=== PATIENT | male | born 1965 | race African-American/Black ===

== ENCOUNTER 2023-11-27 23:08 | Inpatient (IN) | payer OTHER, SELFPAY ==
--- NOTE | 2023-11-27 | ECG_ITS ---
Measurements Intervals [place] Rate: 74 P: 52 MN: 160 QRS: 27 QRSD: 87 T: 51 QT: 373 QTc: 415 Interpretive Statements SINUS RHYTHM NORMAL ELECTROCARDIOGRAM NO PREVIOUS ECG AVAILABLE FOR COMPARISON Electronically Signed On 11-28-2023 7:44:26 CDT by Samir Barahona M.D.
--- NOTE | ~2023-11-27 | CT_ITS ---
EXAMINATION: CT brain wo con DATE: 11/27/2023 23:23 INDICATION: Slurred speech. TECHNIQUE: Computed tomography (CT) of the head was performed without intravenous contrast. The mA wa s adjusted according to patient size. Iterative reconstruction technique was employed. The dose-lengt h product was 605.33 mGy-cm. COMPARISON: None FINDINGS: There are old lacunar infarcts in the bilateral basal ganglia and left thalamus. There are old infarcts in the deep frontal lobe white matter bilaterally. There are scattered areas of low atte nuation in the cerebral white matter. There is no intracranial hemorrhage, acute infarction, or abnor mal intracranial mass lesion. The ventricles are normal in size. There is mucosal thickening in the p aranasal sinuses. The mastoid air cells are normal. There is cerumen in the external auditory canals. IMPRESSION: 1. Old infarcts involving the bilateral basal ganglia, left thalamus, and bilateral frontal lobes. 2. Mild nonspecific cerebral white matter disease, which likely represents chronic small vessel ische doni disease. Reviewed, dictated and finalized at location A. IMPRESSION: 1. Old infarcts involving the bilateral basal ganglia, left thalamus, and bilat eral frontal lobes. 2. Mild nonspecific cerebral white matter disease, which likely represents facing end trimmer mario alberto small vessel ischemic disease.
--- NOTE | ~2023-11-27 | MR_ITS ---
EXAMINATION: MR brain/brain stem wo/w con DATE: 11/28/2023 11:46 INDICATION: Slurred speech. TECHNIQUE: Magnetic resonance imaging (MRI) of the brain and brainstem was performed without and with 13 mL MultiHance intravenous contrast. COMPARISON: Head CT 11/28/2023 FINDINGS: There is an acute infarct in posterior limb left internal capsule. There are old infarcts i nvolving the bilateral basal ganglia and left thalamus. There are scattered areas of nonspecific incr eased T2-weighted signal intensity in the cerebral white matter and telma. There is no intracranial he morrhage or abnormal mass lesion. The ventricles are normal in size. There is mucosal thickening in t he paranasal sinuses. The orbits are normal. The mastoid air cells are normal. IMPRESSION: 1. Acute infarct involving posterior limb left internal capsule. 2. Old infarcts involving the bilateral basal ganglia and left thalamus. 3. Moderate nonspecific cerebral white matter disease and pontine disease, which likely represents ch ronic small vessel ischemic disease. Reviewed, dictated and finalized at location A. IMPRESSION: 1. Acute infarct involving posterior limb left internal capsule. 2. Old infarcts involving the bilateral basal ganglia and left thalamus. 3. Moderate nonspecific cerebral white matter disease and pontine disease, whic h likely represents chronic small vessel ischemic disease.
--- NOTE | ~2023-11-27 | XR_ITS ---
EXAMINATION: XR chest 1V DATE: 11/27/2023 23:31 INDICATION: Slurred speech. Dysphasia. TECHNIQUE: A single frontal view of the chest was obtained. COMPARISON: None. FINDINGS: There is no pneumonia, pleural effusion, or pneumothorax. The heart size is normal. IMPRESSION: 1. No acute cardiopulmonary disease. Reviewed, dictated and finalized at location A.
--- NOTE | ~2023-11-27 | XR_ITS ---
EXAMINATION: XR barium swallow modified DATE: 12/01/2023 13:40 INDICATION: Dysphagia. Cerebral vascular accident. TECHNIQUE: The patient was given barium-containing material of multiple consistencies to swallow by t ashvin speech pathologist while I performed fluoroscopy. Fluoroscopy exposure time was 1.7 minutes. The n umber of fluoroscopy images saved to the PACS was 1. Dose-area product was 1.2 Gy-cm^2. FINDINGS: There is reduced laryngeal elevation and reduced laryngeal adduction. There is laryngeal penetration and aspiration of thin liquids via straw. IMPRESSION: 1. Aspiration of thin liquids via straw. 2. Please refer to the speech therapy report for recommendations. Reviewed, dictated and finalized at location A.
--- NOTE | ~2023-11-27 | XR_ITS ---
EXAMINATION: XR barium swallow modified DATE: 11/29/2023 09:50 INDICATION: Dysphagia. TECHNIQUE: The patient was given barium-containing material of multiple consistencies to swallow by t ashvin speech pathologist while I performed fluoroscopy. Dose-area product was 1.031 Gy-cm2. 2.3 minutes fluoroscopy time FINDINGS: Oral stage: Within functional limits Pharyngeal Phase: Reduced laryngeal elevation, reduced laryngeal abduction and reduced tongue base r etraction Vallecular and piriform sinus residue Laryngeal penetration and aspiration Cervical/Esophageal Stage: Within functional limits IMPRESSION: Modified esophagram findings as above. Please refer to the speech therapy report for spec [facility] recommendations. Reviewed, dictated and finalized at Location A. Reviewed, dictated and finalized at location A. IMPRESSION: Modified esophagram findings as above. Please refer to the speech t herapy report for specific recommendations.
--- NOTE | ~2023-11-27 | CT_ITS ---
EXAMINATION: CTA brain carotid DATE: 11/28/2023 01:15 INDICATION: Slurred speech. TECHNIQUE: Computed tomographic angiography (CTA) of the head was performed with 100 mL Omnipaque-350 intravenous contrast. CTA of the neck was performed with intravenous contrast. Automated exposure co ntrol and iterative reconstruction technique were employed. The dose-length product was 1168.87 mGy-c m. Maximum intensity projection and volume rendered 3D-reconstructions were created by the technPATHSENSORSi st on a separate workstation. COMPARISON: Head CT 11/27/2023 FINDINGS: HEAD CTA: There are old infarcts in the bilateral basal ganglia and left thalamus. There are old infa rcts in the deep frontal lobe white matter bilaterally. There are scattered areas of low attenuation in the cerebral white matter. There is no intracranial hemorrhage, acute infarction, or abnormal intr acranial mass lesion. The ventricles are normal in size. There is mild mucosal thickening in the para nasal sinuses. The mastoid air cells are normal. There is cerumen in the external auditory canals. Th e orbits are normal. The vertebral arteries are codominant. There is no significant stenosis of basil ar artery or the posterior cerebral arteries. The posterior communicating arteries are normal. There is no significant stenosis of the intracranial internal carotid arteries or anterior or middle cerebr al arteries. Anterior communicating artery is normal. There is no aneurysm. There is a carious lesion of a left maxillary molar. NECK CTA: There is mild emphysema. There are no pathologically enlarged lymph nodes. There is no sign ificant stenosis of the vertebral arteries. There is mild plaque in the proximal internal carotid art eries. There is 0% stenosis of the proximal right internal carotid artery relative to normal distal a rtery lumen diameter (NASCET criteria). There is 0% stenosis of the proximal left internal carotid ar reyna relative to normal distal artery lumen diameter. There is moderate cervical spondylosis. IMPRESSION: 1. Old infarcts involving the bilateral basal ganglia, left thalamus, and bilateral frontal lobes. 2. Mild nonspecific cerebral white matter disease, which likely represents chronic small vessel ische doni disease. 3. No aneurysm or significant intracranial calcinosis. 4. 0% stenosis of the proximal internal carotid arteries relative to normal distal artery lumen diame ters (NASCET criteria). 5. Mild emphysema. Reviewed, dictated and finalized at location A. IMPRESSION: 1. Old infarcts involving the bilateral basal ganglia, left thalamus, and bilat eral frontal lobes. 2. Mild nonspecific cerebral white matter disease, which likely represents regional guide mari oalberto small vessel ischemic disease. 3. No aneurysm or significant intracranial calcinosis. 4. 0% stenosis of the proximal internal carotid arteries relative to normal dis alyssia artery lumen diameters (NASCET criteria). 5. Mild emphysema.
[2023-11-27 23:05] VITALS: BP 142/72; PULSE 76; RESP 16; TEMP 36.9; O2SAT 98
[2023-11-27 23:15] VITALS: BP 142/62; PULSE 68; RESP 16
[2023-11-27 23:16] VITALS: BP 133/69; PULSE 78; RESP 13; O2SAT 98
[2023-11-27 23:17] LABS: Glucose Point of Care 286 mg/dl (65-105)
[2023-11-27 23:20] LABS: Basophils Percent Auto 0.4 % (0.2-1.2); Eosinophils Absolute Auto 0.2 K/mm3 (0-0.3); Eosinophils Percent Auto 1.5 % (0-4.4); Hematocrit 42.9 % (42.0-52.0); Hemoglobin 14.8 g/dL (14.0-18.0); Immature Granulocyte Absolute 0.04 K/mm3 (0.00-0.031); Immature Granulocyte Percent A 0.4 % (0-0.5); Lymphocytes Absolute Auto 3.13 K/mm3 (0.9-3.2); Lymphocytes Percent Auto 30.4 % (18.3-44.2); Mean Corpuscular HGB Conc 34.5 g/dl (32-36); Mean Corpuscular Hemoglobin 33.8 pg (26-34); Mean Corpuscular Volume 97.9 fl (80-100); Mean Platelet Volume 11.6 fl (7.4-10.4); Monocytes Absolute Auto 0.8 K/mm3 (0.1-0.6); Monocytes Percent Auto 7.7 % (2.6-8.5); Neutrophils Absolute Auto 6.1 K/mm3 (1.3-6.7); Neutrophils Percent Auto 59.6 % (45.5-73.1); Platelet Count Result 235 k/mm3 (150-375); Red Blood Count 4.38 M/mm3 (4.6-6.20); Red Cell Distribution Width 12.1 % (11.5-14.5); White Blood Count 10.3 K/mm3 (4.5-10.0)
[2023-11-27 23:31] LABS: Partial Thromboplastin Time 29.2 Seconds (22.3-36.8); Prothrombin Time 13.6 Seconds (11.1-14.7)
[2023-11-27 23:33] LABS: Alanine Aminotransferase 18 U/L (6-50); Albumin Level 4.2 g/dL (3.5-5.1); Alkaline Phosphatase 74 U/L (38-126); Anion Gap 4 mmol/L (4-12); Aspartate Amino Transferase 20 U/L (17-59); Bilirubin,Total 0.4 mg/dL (0.2-1.3); Blood Urea Nitrogen 14 mg/dL (9-20); Calcium 9.3 mg/dL (8.4-10.2); Carbon Dioxide 30 mmol/L (22-30); Chloride 104 mmol/L (98-107); Estimated CRCL calculation 105 ml/min; Estimated Glomerular Filt Rate > 60; Glucose 286 mg/dL (65-110); Potassium 3.8 mmol/L (3.4-5.0); Sodium 138 mmol/L (137-145)
[2023-11-27 23:45] LABS: Troponin I < 0.012 ng/mL (0.000-0.034)
[2023-11-28] VITALS (39 sets, daily range): BP systolic 100–141; BP diastolic 46–82; PULSE 57–92; RESP 12–19; TEMP 36.3–36.4; O2SAT 97–100; BMI 23.9
--- NOTE | 2023-11-28 | ECHO_ITS ---
Patient Info Name: Morgan Mckeon Age: 58 years : 1965 Gender: Male Ht: 66 in Wt: 148 lbs BSA: 1.78 m2 HR: 64 bpm BP: 102 / 52 mmHg Heart Rhythm: Sinus Rhythm Technical Quality: Good Exam Date: 11/28/2023 9:42 AM Exam Location: Echo Lab Patient Status: Inpatient Admit Date: 11/28/2023 Staff Ordering Physician: Randy Farooq MD [employer] Plant Operator: Cristobal Bass RDCS Attending Provider: Randy Farooq MD Exam Type: CA echo doppler w bubble study Study Info Indications - CVA Complete two-dimensional, color flow and Doppler transthoracic echocardiogram is performed with agitated saline. Summary 1. Left ventricular chamber dimension is normal. 2. Left ventricular systolic function is normal, estimated at 60-65%. 3. The left ventricular diastolic function is grade I diastolic dysfunction. 4. E/e' 10 is mildly elevated. 5. There is trace mitral valve regurgitation. 6. No pulmonary hypertension, estimated pulmonary arterial systolic pressure is 11 mmHg. Left Ventricle E/e' 10 is mildly elevated. Left ventricular chamber dimension is normal. Left ventricular systolic function is normal, estimated at 60-65%. The left ventricular diastolic function is grade I diastolic dysfunction. Right Ventricle Right ventricular systolic function is normal and with normal TAPSE 2.2 cm. Right ventricular chamber dimension is normal. Left Atria Left atrial chamber dimension is normal. Right Atria Right atrial chamber dimension is normal. Atrial Septum Agitated saline injection with and without valsalva maneuver opacified right side cardiac chambers without shunt to left side cardiac chambers. Intact interatrial septum visualized by 2D and agitated saline imaging. Aortic Valve The aortic valve is trileaflet. There is no aortic valve stenosis. There is no aortic valve regurgitation. Pulmonic Valve There is no pulmonic regurgitation. Mitral Valve There is no mitral valve stenosis. There is trace mitral valve regurgitation. Tricuspid Valve There is no tricuspid valve regurgitation. No pulmonary hypertension, estimated pulmonary arterial systolic pressure is 11 mmHg. Pericardium/Pleural There is no pericardial effusion. Inferior Vena Cava Normal inferior vena cava with >50% collapse upon inspiration consistent with normal right atrial pressure, 5 mmHg. Aorta The aortic root size at the sinus of Valsalva is normal. Left Ventricular Outflow Tract Name Value Normal LVOT 2D LVOT Diameter 2.1 cm LVOT Doppler LVOT Peak Gradient 4 mmHg LVOT Mean Gradient 2 mmHg LVOT VTI 21 cm LVOT VTI/AV VTI Ratio 0.8 LVOT Stroke Volume 74 ml LVOT CO 5.0 l/min LVOT CI 2.8 l/min/m2 Pulmonic Valve Name Value Normal RVOT Doppler RVOT Peak Gradient
--- NOTE | 2023-11-28 00:59 | ED.GENADULT ---
HPI - General Adult General Chief complaint: Neuro Symptoms/Deficit Stated complaint: intermittent trouble finding words Time Seen by Provider: 11/27/23 23:37 History of Present Illness HPI narrative: Patient is a 58-year-old male who presents to the emergency department this evening complaining of difficulty with his speech and some dysphagia. Patient states that yesterday he went to bed feeling fine and woke up this morning with garbled speech. Patient admits with history of hypertension and diabetes but when asked if he takes any medications for both of these he states no. 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 He is currently denying any focal weakness, numbness and no tingling. Patient denies any headache, dizziness, blurry visions, chest pain or shortness of breath. He recent illness or any fevers or chills. He also denies any abdominal pain or nausea and vomiting. There are no other modifying, alleviating, or precipitating factors at this time. Related Data Allergies Allergy/AdvReac Type Severity Reaction Status Date / Time No Known Allergies Allergy Verified 11/28/23 06:25 Review of Systems Review of Systems: All systems are reviewed and are negative unless stated otherwise in the HPI. Exam Narrative: General: Alert, awake, afebrile, in no acute distress. HEENT: PERRL, no rhinorrhea, no post nasal drip, oropharynx clear. Neck: Trachea midline, no JVD, no lymphadenopathy. Cardiovascular: Regular rate and rhythm, no murmurs, rubs or gallops, no peripheral edema. Respiratory: Clear to auscultation bilaterally, no tachypnea, no wheezing, no rhonchi, no rubs, no respiratory distress. Abdomen: Soft, nontender, nondistended, no rebound, no guarding, no peritoneal signs. Musculoskeletal: No joint swelling or deformity, normal muscle tone. Skin: No rashes or petechia, no signs of infection. Psychiatric: Alert and oriented, normal behavior and judgment for situation. Neurological: Alert and oriented to person, place, and time. Follows all commands. 5/5 motor strength in the bilateral upper and lower extremity, sensation intact and equal in the bilateral upper and lower extremity, cranial nerves 2-12 grossly intact, no appreciable facial droop, speech is slurred and difficult to understand with expressive aphasia, NIH score of 2 secondary to dysarthria and expressive aphasia. Course Vital Signs Vital signs: Vital Signs Temperature 98.4 F 11/27/23 23:05 Pulse Rate 76 11/27/23 23:05 Respiratory Rate 16 11/27/23 23:05 Blood Pressure 142/72 H 11/27/23 23:05 Pulse Oximetry 98 11/27/23 23:05 Oxygen Delivery Room Air 11/27/23 23:05 Temperature 98.4 F 11/27/23 23:05 Pulse Rate 64 11/28/23 05:17 Respiratory Rate 15 11/28/23 05:17 Blood Pressure 102/52 L 11/28/23 05:17 Pulse Oximetry 99 11/28/23 05:17 Oxygen Delivery Room Air 11/27/23 23:05 Medical Decision Making MDM Narrative Medical decision making narrative: The patient was evaluated by myself in the emergency department. History is obtained from patient who is an independent historian and physical exam was performed. External medical records were reviewed at this time. IV was established and pertinent tests were ordered. EKG was obtained which revealed sinus rhythm rate of 74. No ST changes, T wave inversions or evidence of acute ischemia. EKG was independently interpreted by me and is currently pending official cardiology read. Laboratory results obtained revealing no acute process Imaging studies obtained included CT brain without IV contrast which was independently interpreted by me revealing no acute intracranial process, old infarcts, which is pending final radiology interpretation. CT angiogram head and neck was obtained at this time revealing a negative CT angiogram of the head and neck, dural venous sinuses are patent. At this time, patient was informed of these find
--- NOTE | 2023-11-28 06:15 | PM.IMHP ---
H&P: HPI History of Present Illness Date/Time: 11/28/23 06:15 Chief Complaint: Slowed speech Narrative: Patient is a 58-year-old male who presents to the emergency department this evening complaining of difficulty with his speech and some dysphagia.? Patient states that yesterday he went to bed feeling fine and woke up this morning with garbled speech.? Patient admits with history of hypertension and diabetes but when asked if he takes any medications for both of these he states no.? 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 He is currently denying any focal weakness, numbness and no tingling.? Patient denies any headache, dizziness, blurry visions, chest pain or shortness of breath. Patient during the ER stay also developed expressive aphasia he is enalapril to give us any detail answers. Facial CT is negative patient being admitted for further neuro workup with Neurology consult and a brain MRI Review of Systems Review of Systems: No fevers chills nausea vomiting. No double vision no blurry vision. No difficulty hearing or sinus complaints. No chest pain shortness of breath fever palpitation dizziness ankle swelling. No coughing wheezing chills. No nausea constipation diarrhea abdominal pain reflux. No urgency frequency of urination. No hematuria. No skin rash eczema. No anxiety depression difficulty sleeping. No bleeding gums enlarged glands. No muscle ache back pain joint stiffness. No loss of strength numbness headache tremor or loss of memory. Meds Home Medications and Allergies Allergies Allergy/AdvReac Type Severity Reaction Status Date / Time No Known Allergies Allergy Verified 11/28/23 06:25 Vital Signs Vital Signs - 24 hr 11/27/23 23:05 11/27/23 23:15 11/28/23 01:58 Temperature 36.9 C Pulse Rate 76 68 74 Respiratory Rate 16 16 16 Blood Pressure 142/72 H 142/62 H 134/72 Pulse Oximetry 98 98 Oxygen Delivery Room Air 11/28/23 03:31 11/28/23 05:17 Temperature Pulse Rate 73 64 Respiratory Rate 16 15 Blood Pressure 124/64 102/52 L Pulse Oximetry 99 Oxygen Delivery Exam Narrative: GENERAL: Well appearing, no acute distress. HEAD: Normocephalic, atraumatic. NECK: Supple. No adenopathy, no masses. RESPIRATORY: respirations nonlabored. , no rales, wheezing. CARDIOVASCULAR: Regular rate and rhythm without murmurs, . Peripheral pulses 2+ and equal bilaterally. ABDOMINAL: Soft, nontender, nondistended, no hepatosplenomegaly. Normoactive BS. MUSCULOSKELETAL: no Epigastric and no hypochondrial tenderness SKIN: Warm, dry, NEURO: A&O X3. Moves all extremities slurred speech expressive aphasia H&P: Results Labs Labs: Short CBC 11/27/23 Range/Units 23:14 WBC 10.3 H (4.5-10.0) K/mm3 Hgb 14.8 (14.0-18.0) g/dL Hct 42.9 (42.0-52.0) % Plt Count 235 (150-375) k/mm3 BMP 11/27/23 23:14 Sodium 138 Potassium 3.8 Chloride 104 Carbon Dioxide 30 BUN 14 Creatinine 0.60 L Glucose 286 H Calcium 9.3 Cardiac Enzymes 11/27/23 Range/Units 23:14 Troponin I < 0.012 (0.000-0.034) ng/mL Liver Function 11/27/23 Range/Units 23:14 Total Bilirubin 0.4 (0.2-1.3) mg/dL AST 20 (17-59) U/L ALT 18 (6-50) U/L Alkaline Phosphatase 74 (38-126) U/L Albumin 4.2 (3.5-5.1) g/dL Assessment and Plan Assessment and plan (1) Slurred speech: Code(s): R47.81 - Slurred speech Status: Acute (2) TIA (transient ischemic attack): Code(s): G45.9 - Transient cerebral ischemic attack, unspecified Status: Acute Plan TIA/slurred speech 2D echo has been ordered. CTA head and neck reviewed. MRI of the brain pending. Lipid panel hemoglobin A1c. Neurology consult. Continue cardiac monitoring. NPO until cleared by Neurology. Continue IV hydration Monitor for hypertension. Patient should be started on aspirin and Plavix a
[2023-11-28] MEDS: DEXTROSE 5%/0.45% SOD CHL 1,000 ML 100 ML IV CONT ×2 (06:43→18:37)
[2023-11-28 07:10] LABS: LDL Cholesterol Direct 136 mg/dL
--- NOTE | 2023-11-28 09:29 | ADMGEN ---
This patient, Morgan Mckeon, was admitted to [facility] Surg Room 317-01. Patient/family oriented to hospital policies and general routines including ID bracelet, bed and alarms, visiting hours, pain management, procedures, bathroom and other care routines, personal items, smoking policy, room service/diet, and visiting hours. Information on how to activate the Rapid Response Team has been discussed. Patient/Family are encouraged to report perceived risks to care and to ask questions if they do not understand what they are told or what they should do. spoke with brother who lives in [place] over the phone. patient still has slurred speech, is stable.
--- NOTE | 2023-11-28 10:24 | WPDNEURCNPN ---
Assessment and Plan Assessment and plan (1) Stroke: Code(s): I63.9 - Cerebral infarction, unspecified Status: Acute (2) Dysarthria: Code(s): R47.1 - Dysarthria and anarthria Status: Acute (3) Weakness on right side of face: Code(s): R29.810 - Facial weakness Status: Acute (4) Diabetes: Code(s): E11.9 - Type 2 diabetes mellitus without complications Status: Acute (5) Hypertension: Code(s): I10 - Essential (primary) hypertension Status: Acute (6) Current smoker: Code(s): F17.200 - Nicotine dependence, unspecified, uncomplicated Status: Acute Plan Morgan Mckeon is a 58 year old male with a history of hypertension, chronic smoking, and diabetes, who presented due to difficulties with his speech. MRI brain confirmed L posterior limb of internal capsule infarct (acute). Etiology is likely small vessel stroke (lacunar) given uncontrolled risk factors. - Speech therapy and swallow evaluation - Surface echocardiogram with bubble study - HgbA1c and LDL has been checked. Start Lipitor 80mg daily -- goal LDL <70 - Optimize BP with goal of normotension - Start Aspirin 81mg daily - Start Plavix 75mg daily, to take for 3 weeks and then discontinue - Discussed importance of smoking cessation Consult date: 11/28/23 Reason for consult: Alteration in speech HPI: Morgan Mckeon is a 58 year old male with a history of hypertension and diabetes, who presented due to difficulties with his speech. Patient went to bed the night prior to admission feeling at baseline, and then woke up the following morning with garbled speech. He denies any focal weakness/numbness/vision changes. When he presented to the ER, CT head was negative for any acute changes, but did show old strokes in bilateral basal ganglia, L thalamus, and bilateral frontal lobe. CTA brain/carotid did not show any evidence of vessel disease. His HgbA1c is 10 and LDL is 136. Blood pressure on presentation ranged from 102/52 - 142/72. EKG read as sinus rhythm. His MRI brain showed acute infarct in the posterior limb of internal capsule on the left side. Patient smokes 1 ppd. He resides in [place]. 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 He was driving through [place] at the time, which is why he is admitted her at [place]. Review of Systems Review of Systems: All systems reviewed & are unremarkable except as noted in HPI and below PMFSH Social History Social History Smoking status: Heavy tobacco smoker Tobacco type: cigarettes Second hand tobacco smoke exposure: No Alcohol intake: never Substance use: never Do You Feel Safe in your Home?: Yes Lack of Transportation: No Lack of Food: Never True Current Housing: I Have Housing Concerned About Future Housing: No Difficulty Paying Gas/Electric Bills: No Difficulty Paying for Meds: No Currently Unemployed: No Education: Don't Know Difficulty w/ Childcare or Family Care: No Spiritual care concerns: No Meds Home Medications and Allergies Home Medications Medication Instructions Recorded Confirmed Type No Home Medications 11/28/23 11/28/23 History Allergies Allergy/AdvReac Type Severity Reaction Status Date / Time No Known Allergies Allergy Verified 11/28/23 06:25 Vital Signs Vital Signs - 24 hr 11/27/23 23:05 11/27/23 23:15 11/28/23 01:58 Temperature 36.9 C Pulse Rate 76 68 74 Respiratory Rate 16 16 16 Blood Pressure 142/72 H 142/62 H 134/72 Pulse Oximetry 98 98 Oxygen Delivery Room Air 11/28/23 03:31 11/28/23 05:17 11/27/23 23:16 Temperature Pulse Rate 73 64 78 Respiratory Rate 16 15 13 Blood Pressure 124/64 102/52 L 133/69 Pulse Oximetry 99 98 Oxygen Delivery 11/28/23 01:59 11/28/23 02:01 11/28/23 02:16 Temperature Pulse Rate 70 70 77 Respiratory Rate 15 16 17 Blood Pressure 134/71 115/76 124/66 Pulse Oximetry 98 100 99
--- NOTE | 2023-11-28 14:43 | PM.IMPN ---
Progress Note: A&P Assessment and Plan (1) Acute CVA (cerebrovascular accident): Code(s): I63.9 - Cerebral infarction, unspecified Status: Acute Assessment and Plan: Head CT showing old infarcts involving the bilateral basal ganglia, left thalamus, bilateral frontal lobes Head and neck CTA was negative for any stenosis, showed old infarcts involving the bilateral basal ganglia and the left thalamus and bilateral frontal lobes. Brain MRI revealing acute infarct involving posterior limb left internal capsule, old infarcts involving the bilateral basal ganglia in the left thalamus, age-related changes. Echo showing normal LV systolic function with an estimated EF of 60-65%, grade 1 diastolic dysfunction Neurology consulted Patient was started on Lipitor 80 mg daily, aspirin 81 daily, Plavix 75 mg daily for 3 weeks PT and OT ordered Speech ordered to eval and treat Barium swallow ordered Patient continues with expressive aphasia, dysphasia, and incontinence of bowel and bladder. Continue neuro checks Continue cardiac telemetry monitoring (2) Slurred speech: Code(s): R47.81 - Slurred speech Status: Acute Assessment and Plan: See above (3) Hypertension: Code(s): I10 - Essential (primary) hypertension Status: Acute Assessment and Plan: Blood pressure ranging 116/68 to 135/68 Not on any home medication (4) Diabetes: Code(s): E11.9 - Type 2 diabetes mellitus without complications Status: Acute Assessment and Plan: Blood glucose 286 Hemoglobin A1c 10.0 Accu-Cheks q.6 hours Sliding scale insulin ordered Hypoglycemic protocol in place Currently NPO for barium swallow Time Spent With Patient Time with patient: Greater than 35 minutes Subjective Date/time seen: 11/28/23 14:43 Interval history: This is a 58-year-old male who presented to the hospital on 11/27/2023 for evaluation is slowed speech. Workup in the hospital included a chest x-ray which was negative. Head CT which showed old infarcts including the bilateral basal ganglia, left thalamus, bilateral frontal lobes. Head and neck CTA showed the old infarcts in the bilateral basal ganglia, left thalamus, bilateral frontal lobes, no stenosis was seen. Brain MRI today showed acute infarct involving posterior limb left internal capsule, old infarcts involving the bilateral basal ganglia and the left thalamus, age-related changes. Echo today shown normal LV systolic function with an estimated EF of 60-65%, grade 1 diastolic dysfunction. Initial labs showed a white blood cell count of 10.3, hemoglobin A1c of 10.0, liver enzymes are normal. Neurology was consulted and recommended started patient on Lipitor 80 mg daily, aspirin 81 mg daily, Plavix 75 mg daily for 3 weeks, and get a speech eval. On examination today patient speech is slurred. He reports incontinence since the CVA. He denies any fever, chills, vision changes, nausea, vomiting, diarrhea, chest pain, or shortness of breath. Plan is for PT and OT to evaluate him, speech therapy eval, and barium swallow. Review of Systems Review of Systems: All systems reviewed & are unremarkable except as noted in HPI and below Constitutional: Constitutional: Reports as per HPI and Reports no additional constitutional complaints Eyes: Eyes: Reports as per HPI and Reports no additional eye complaints ENT: Reports system reviewed and no additional complaints, except as documented and Reports as per HPI Cardiovascular: Cardiovascular: Reports as per HPI and Reports no additional cardiovascular complaints Respiratory: Respiratory: Reports as per HPI and Reports no additional respiratory complaints Gastrointestinal: Gastrointestinal: Reports as per HPI and Reports no additional gastrointestinal complaints Genitourinary: Genitourinary: Reports no additional male genitourinary complaints and Reports as per HPI Musculoskeletal: Musculoskeletal: Reports
--- NOTE | 2023-11-28 16:53 | PC.NURSE ---
did bedside swallow with on sip of water and patient choked on it immediately. Will keep NPO until barrium swallow tomorrow 11/28
[2023-11-28 18:30] LABS: Glucose Point of Care 220 mg/dl (65-105)
[2023-11-28] MEDS: INSULIN ASPART (*BKC) 100 UNITS/ML SUB-Q (18:37)
[2023-11-29] VITALS (9 sets, daily range): BP systolic 125–153; BP diastolic 72–77; PULSE 67–89; RESP 16–18; TEMP 36–36.4; O2SAT 100
[2023-11-29 00:41] LABS: Glucose Point of Care 222 mg/dl (65-105)
[2023-11-29] MEDS: INSULIN ASPART (*BKC) 100 UNITS/ML SUB-Q ×4 (00:42→17:32)
[2023-11-29] MEDS: DEXTROSE 5%/0.45% SOD CHL 1,000 ML 100 ML IV CONT ×2 (06:12→23:59)
[2023-11-29 06:40] LABS: Glucose Point of Care 207 mg/dl (65-105)
--- NOTE | 2023-11-29 09:14 | P.PNIM_ITS ---
Progress Note: A&P Assessment and Plan (1) Acute CVA (cerebrovascular accident): Code(s): I63.9 - Cerebral infarction, unspecified Status: Acute Assessment and Plan: 11/28/23: * Head CT showing old infarcts involving the bilateral basal ganglia, left thalamus, bilateral frontal lobes * Head and neck CTA was negative for any stenosis, showed old infarcts involving the bilateral basal ganglia and the left thalamus and bilateral frontal lobes. * Brain MRI revealing acute infarct involving posterior limb left internal capsule, old infarcts involving the bilateral basal ganglia in the left thalamus, age-related changes. * Echo showing normal LV systolic function with an estimated EF of 60-65%, grade 1 diastolic dysfunction * Neurology consulted * Patient was started on Lipitor 80 mg daily, aspirin 81 daily, Plavix 75 mg daily for 3 weeks * PT and OT ordered * Speech ordered to eval and treat * Barium swallow ordered * Patient continues with expressive aphasia, dysphasia, and incontinence of bowel and bladder. * Continue neuro checks * Continue cardiac telemetry monitoring 11/29/23: * Neurology following * PT and OT to eval today * Speech evaluated patient today and reporting mixed aphasia * Patient had a barium swallow today in which she failed, speech will follow over the next few days * Continue neuro checks * Continue patient monitor (2) Slurred speech: Code(s): R47.81 - Slurred speech Status: Acute Assessment and Plan: See above (3) Hypertension: Code(s): I10 - Essential (primary) hypertension Status: Acute Assessment and Plan: 11/28/23: * Blood pressure ranging 116/68 to 135/68 * Not on any home medication 11/29/23: * Blood pressures are stable (4) Diabetes: Code(s): E11.9 - Type 2 diabetes mellitus without complications Status: Acute Assessment and Plan: 11/28/23: * Blood glucose 286 * Hemoglobin A1c 10.0 * Accu-Cheks q.6 hours * Sliding scale insulin ordered * Hypoglycemic protocol in place * Currently NPO for barium swallow 11/29/23: * Blood sugars ranging to 207-234 * Continue with current treatment plan Time Spent With Patient Time with patient: 25 - 35 minutes Subjective Date/time seen: 11/29/23 09:14 Interval history: 11/28/23: This is a 58-year-old male who presented to the hospital on 11/27/2023 for evaluation is slowed speech. Workup in the hospital included a chest x-ray which was negative. Head CT which showed old infarcts including the bilateral basal ganglia, left thalamus, bilateral frontal lobes. Head and neck CTA showed the old infarcts in the bilateral basal ganglia, left thalamus, bilateral frontal lobes, no stenosis was seen. Brain MRI today showed acute infarct involving posterior limb left internal capsule, old infarcts involving the bilateral basal ganglia and the left thalamus, age-related changes. Echo today shown normal LV systolic function with an estimated EF of 60-65%, grade 1 diastolic dysfunction. Initial labs showed a white blood cell count of 10.3, hemoglobin A1c of 10.0, liver enzymes are normal. Neurology was consulted and recommended started patient on Lipitor 80 mg daily, aspirin 81 mg daily, Plavix 75 mg daily for 3 weeks, and get a speech eval. On examination today patient speech is slurred. He reports incontinence since the CVA. He denies any fever, chills, vision changes, nausea, vomiting, diarrhea, chest pain, or shortness of breath. Plan is for PT and OT to evaluate him, speech therapy eval, and barium swallow. 11/29/23: Patient se
--- NOTE | 2023-11-29 09:14 | PM.IMPN ---
Progress Note: A&P Assessment and Plan (1) Acute CVA (cerebrovascular accident): Code(s): I63.9 - Cerebral infarction, unspecified Status: Acute Assessment and Plan: 11/28/23: Head CT showing old infarcts involving the bilateral basal ganglia, left thalamus, bilateral frontal lobes Head and neck CTA was negative for any stenosis, showed old infarcts involving the bilateral basal ganglia and the left thalamus and bilateral frontal lobes. Brain MRI revealing acute infarct involving posterior limb left internal capsule, old infarcts involving the bilateral basal ganglia in the left thalamus, age-related changes. Echo showing normal LV systolic function with an estimated EF of 60-65%, grade 1 diastolic dysfunction Neurology consulted Patient was started on Lipitor 80 mg daily, aspirin 81 daily, Plavix 75 mg daily for 3 weeks PT and OT ordered Speech ordered to eval and treat Barium swallow ordered Patient continues with expressive aphasia, dysphasia, and incontinence of bowel and bladder. Continue neuro checks Continue cardiac telemetry monitoring 11/29/23: Neurology following PT and OT to eval today Speech evaluated patient today and reporting mixed aphasia Patient had a barium swallow today in which she failed, speech will follow over the next few days Continue neuro checks Continue vehicle monitor technician (2) Slurred speech: Code(s): R47.81 - Slurred speech Status: Acute Assessment and Plan: See above (3) Hypertension: Code(s): I10 - Essential (primary) hypertension Status: Acute Assessment and Plan: 11/28/23: Blood pressure ranging 116/68 to 135/68 Not on any home medication 11/29/23: Blood pressures are stable (4) Diabetes: Code(s): E11.9 - Type 2 diabetes mellitus without complications Status: Acute Assessment and Plan: 11/28/23: Blood glucose 286 Hemoglobin A1c 10.0 Accu-Cheks q.6 hours Sliding scale insulin ordered Hypoglycemic protocol in place Currently NPO for barium swallow 11/29/23: Blood sugars ranging to 207-234 Continue with current treatment plan Time Spent With Patient Time with patient: 25 - 35 minutes Subjective Date/time seen: 11/29/23 09:14 Interval history: 11/28/23: This is a 58-year-old male who presented to the hospital on 11/27/2023 for evaluation is slowed speech. Workup in the hospital included a chest x-ray which was negative. Head CT which showed old infarcts including the bilateral basal ganglia, left thalamus, bilateral frontal lobes. Head and neck CTA showed the old infarcts in the bilateral basal ganglia, left thalamus, bilateral frontal lobes, no stenosis was seen. Brain MRI today showed acute infarct involving posterior limb left internal capsule, old infarcts involving the bilateral basal ganglia and the left thalamus, age-related changes. Echo today shown normal LV systolic function with an estimated EF of 60-65%, grade 1 diastolic dysfunction. Initial labs showed a white blood cell count of 10.3, hemoglobin A1c of 10.0, liver enzymes are normal. Neurology was consulted and recommended started patient on Lipitor 80 mg daily, aspirin 81 mg daily, Plavix 75 mg daily for 3 weeks, and get a speech eval. On examination today patient speech is slurred. He reports incontinence since the CVA. He denies any fever, chills, vision changes, nausea, vomiting, diarrhea, chest pain, or shortness of breath. Plan is for PT and OT to evaluate him, speech therapy eval, and barium swallow. 11/29/23: Patient seems a bit frustrated with trying to find his words. Speech therapist in room working with patient. He had a barium swallow today in which he failed. Speech will be following up with him over the next few days. He will remain NPO at this time. PT and OT to evaluate him today. Review of Systems Review of Systems: All systems reviewed & are unremarkable except as noted in HPI and below Constitutional: Constitution
--- NOTE | 2023-11-29 10:03 | PCSTNOTE ---
Please refer to the Modified Barium Swallow Evaluation in the EMR.
[2023-11-29 10:17] LABS: Basophils Percent Auto 0.3 % (0.2-1.2); Eosinophils Absolute Auto 0.1 K/mm3 (0-0.3); Eosinophils Percent Auto 0.5 % (0-4.4); Hematocrit 43.5 % (42.0-52.0); Hemoglobin 14.8 g/dL (14.0-18.0); Immature Granulocyte Absolute 0.03 K/mm3 (0.00-0.031); Immature Granulocyte Percent A 0.3 % (0-0.5); Lymphocytes Absolute Auto 1.95 K/mm3 (0.9-3.2); Lymphocytes Percent Auto 21.3 % (18.3-44.2); Mean Corpuscular Hemoglobin 33.4 pg (26-34); Mean Corpuscular Volume 98.2 fl (80-100); Mean Platelet Volume 11.3 fl (7.4-10.4); Monocytes Absolute Auto 0.6 K/mm3 (0.1-0.6); Monocytes Percent Auto 6.5 % (2.6-8.5); Neutrophils Absolute Auto 6.5 K/mm3 (1.3-6.7); Neutrophils Percent Auto 71.1 % (45.5-73.1); Platelet Count Result 243 k/mm3 (150-375); Red Blood Count 4.43 M/mm3 (4.6-6.20); White Blood Count 9.2 K/mm3 (4.5-10.0)
[2023-11-29 10:27] LABS: Magnesium 1.9 mg/dL (1.6-2.3)
[2023-11-29 10:34] LABS: Alanine Aminotransferase 13 U/L (6-50); Alkaline Phosphatase 67 U/L (38-126); Anion Gap 7 mmol/L (4-12); Aspartate Amino Transferase 19 U/L (17-59); Bilirubin,Total 0.8 mg/dL (0.2-1.3); Blood Urea Nitrogen 5 mg/dL (9-20); Carbon Dioxide 26 mmol/L (22-30); Chloride 104 mmol/L (98-107); Estimated CRCL calculation 124 ml/min; Estimated Glomerular Filt Rate > 60; Glucose 220 mg/dL (65-110); Potassium 3.9 mmol/L (3.4-5.0); Sodium 137 mmol/L (137-145)
[2023-11-29 11:42] LABS: Glucose Point of Care 234 mg/dl (65-105)
[2023-11-30] VITALS: PULSE 66
[2023-11-30 00:08] LABS: Glucose Point of Care 201 mg/dl (65-105)
[2023-11-30] MEDS: INSULIN ASPART (*BKC) 100 UNITS/ML SUB-Q (00:16)
[2023-11-30 04:00] VITALS: PULSE 68
[2023-11-30 06:00] VITALS: BP 141/71; PULSE 75; RESP 16; TEMP 36.6; O2SAT 100
[2023-11-30 06:13] LABS: Basophils Percent Auto 0.3 % (0.2-1.2); Eosinophils Absolute Auto 0.2 K/mm3 (0-0.3); Eosinophils Percent Auto 1.7 % (0-4.4); Hematocrit 42.3 % (42.0-52.0); Hemoglobin 14.3 g/dL (14.0-18.0); Immature Granulocyte Absolute 0.03 K/mm3 (0.00-0.031); Immature Granulocyte Percent A 0.3 % (0-0.5); Lymphocytes Absolute Auto 2.77 K/mm3 (0.9-3.2); Lymphocytes Percent Auto 30.9 % (18.3-44.2); Mean Corpuscular HGB Conc 33.8 g/dl (32-36); Mean Corpuscular Hemoglobin 33.3 pg (26-34); Mean Corpuscular Volume 98.6 fl (80-100); Mean Platelet Volume 11.7 fl (7.4-10.4); Monocytes Absolute Auto 0.7 K/mm3 (0.1-0.6); Monocytes Percent Auto 7.9 % (2.6-8.5); Neutrophils Absolute Auto 5.3 K/mm3 (1.3-6.7); Neutrophils Percent Auto 58.9 % (45.5-73.1); Platelet Count Result 230 k/mm3 (150-375); Red Blood Count 4.29 M/mm3 (4.6-6.20); Red Cell Distribution Width 11.9 % (11.5-14.5)
[2023-11-30 06:23] LABS: Alanine Aminotransferase 12 U/L (6-50); Albumin Level 3.7 g/dL (3.5-5.1); Alkaline Phosphatase 57 U/L (38-126); Anion Gap 1 mmol/L (4-12); Aspartate Amino Transferase 17 U/L (17-59); Bilirubin,Total 0.8 mg/dL (0.2-1.3); Blood Urea Nitrogen 6 mg/dL (9-20); Calcium 8.7 mg/dL (8.4-10.2); Carbon Dioxide 29 mmol/L (22-30); Chloride 105 mmol/L (98-107); Estimated CRCL calculation 124 ml/min; Estimated Glomerular Filt Rate > 60; Glucose 169 mg/dL (65-110); Magnesium 1.8 mg/dL (1.6-2.3); Potassium 3.4 mmol/L (3.4-5.0); Sodium 135 mmol/L (137-145)
[2023-11-30 12:54] LABS: Glucose Point of Care 185 mg/dl (65-105)
[2023-11-30] MEDS: DEXTROSE 5%/0.45% SOD CHL 1,000 ML 100 ML IV CONT ×2 (13:46→22:58)
[2023-11-30 14:00] VITALS: BP 149/77; PULSE 68; RESP 18; TEMP 36.4; O2SAT 100
--- NOTE | 2023-11-30 14:48 | P.PNIM_ITS ---
Progress Note: A&P Assessment and Plan (1) Acute CVA (cerebrovascular accident): Code(s): I63.9 - Cerebral infarction, unspecified Status: Acute Assessment and Plan: 11/28/23: * Head CT showing old infarcts involving the bilateral basal ganglia, left thalamus, bilateral frontal lobes * Head and neck CTA was negative for any stenosis, showed old infarcts involving the bilateral basal ganglia and the left thalamus and bilateral frontal lobes. * Brain MRI revealing acute infarct involving posterior limb left internal capsule, old infarcts involving the bilateral basal ganglia in the left thalamus, age-related changes. * Echo showing normal LV systolic function with an estimated EF of 60-65%, grade 1 diastolic dysfunction * Neurology consulted * Patient was started on Lipitor 80 mg daily, aspirin 81 daily, Plavix 75 mg daily for 3 weeks * PT and OT ordered * Speech ordered to eval and treat * Barium swallow ordered * Patient continues with expressive aphasia, dysphasia, and incontinence of bowel and bladder. * Continue neuro checks * Continue cardiac telemetry monitoring 11/29/23: * Neurology following * PT and OT to eval today * Speech evaluated patient today and reporting mixed aphasia * Patient had a barium swallow today in which she failed, speech will follow over the next few days * Continue neuro checks * Continue cardiac specialist 11/30/23: * Continue with PT and OT * Neurology following * Plan for another barium swallow as he failed his barium swallow yesterday. * Speech following and will reassess today * Continue neuro checks * We can go ahead and DC cardiac specialist (2) Slurred speech: Code(s): R47.81 - Slurred speech Status: Acute Assessment and Plan: See above (3) Hypertension: Code(s): I10 - Essential (primary) hypertension Status: Acute Assessment and Plan: 11/28/23: * Blood pressure ranging 116/68 to 135/68 * Not on any home medication 11/29/23: * Blood pressures are stable (4) Diabetes: Code(s): E11.9 - Type 2 diabetes mellitus without complications Status: Acute Assessment and Plan: 11/28/23: * Blood glucose 286 * Hemoglobin A1c 10.0 * Accu-Cheks q.6 hours * Sliding scale insulin ordered * Hypoglycemic protocol in place * Currently NPO for barium swallow 11/29/23: * Blood sugars ranging to 207-234 * Continue with current treatment plan Time Spent With Patient Time with patient: Greater than 35 minutes Subjective Date/time seen: 11/30/23 14:48 Interval history: 11/28/23: This is a 58-year-old male who presented to the hospital on 11/27/2023 for evaluation is slowed speech. Workup in the hospital included a chest x-ray which was negative. Head CT which showed old infarcts including the bilateral basal ganglia, left thalamus, bilateral frontal lobes. Head and neck CTA showed the old infarcts in the bilateral basal ganglia, left thalamus, bilateral frontal lobes, no stenosis was seen. Brain MRI today showed acute infarct involving posterior limb left internal capsule, old infarcts involving the bilateral basal ganglia and the left thalamus, age-related changes. Echo today shown normal LV systolic function with an estimated EF of 60-65%, grade 1 diastolic dysfunction. Initial labs showed a white blood cell count of 10.3, hemoglobin A1c of 10.0, liver enzymes are normal. Neurology was consulted and recommended started patient on Lipitor 80 mg daily, aspirin 81 mg daily, Plavix 75 mg daily for 3 weeks, and get a speech eval. On examination today patient spee
--- NOTE | 2023-11-30 14:48 | PM.IMPN ---
Progress Note: A&P Assessment and Plan (1) Acute CVA (cerebrovascular accident): Code(s): I63.9 - Cerebral infarction, unspecified Status: Acute Assessment and Plan: 11/28/23: Head CT showing old infarcts involving the bilateral basal ganglia, left thalamus, bilateral frontal lobes Head and neck CTA was negative for any stenosis, showed old infarcts involving the bilateral basal ganglia and the left thalamus and bilateral frontal lobes. Brain MRI revealing acute infarct involving posterior limb left internal capsule, old infarcts involving the bilateral basal ganglia in the left thalamus, age-related changes. Echo showing normal LV systolic function with an estimated EF of 60-65%, grade 1 diastolic dysfunction Neurology consulted Patient was started on Lipitor 80 mg daily, aspirin 81 daily, Plavix 75 mg daily for 3 weeks PT and OT ordered Speech ordered to eval and treat Barium swallow ordered Patient continues with expressive aphasia, dysphasia, and incontinence of bowel and bladder. Continue neuro checks Continue cardiac telemetry monitoring 11/29/23: Neurology following PT and OT to eval today Speech evaluated patient today and reporting mixed aphasia Patient had a barium swallow today in which she failed, speech will follow over the next few days Continue neuro checks Continue monitor technician 11/30/23: Continue with PT and OT Neurology following Plan for another barium swallow as he failed his barium swallow yesterday. Speech following and will reassess today Continue neuro checks We can go ahead and DC monitor technician (2) Slurred speech: Code(s): R47.81 - Slurred speech Status: Acute Assessment and Plan: See above (3) Hypertension: Code(s): I10 - Essential (primary) hypertension Status: Acute Assessment and Plan: 11/28/23: Blood pressure ranging 116/68 to 135/68 Not on any home medication 11/29/23: Blood pressures are stable (4) Diabetes: Code(s): E11.9 - Type 2 diabetes mellitus without complications Status: Acute Assessment and Plan: 11/28/23: Blood glucose 286 Hemoglobin A1c 10.0 Accu-Cheks q.6 hours Sliding scale insulin ordered Hypoglycemic protocol in place Currently NPO for barium swallow 11/29/23: Blood sugars ranging to 207-234 Continue with current treatment plan Time Spent With Patient Time with patient: Greater than 35 minutes Subjective Date/time seen: 11/30/23 14:48 Interval history: 11/28/23: This is a 58-year-old male who presented to the hospital on 11/27/2023 for evaluation is slowed speech. Workup in the hospital included a chest x-ray which was negative. Head CT which showed old infarcts including the bilateral basal ganglia, left thalamus, bilateral frontal lobes. Head and neck CTA showed the old infarcts in the bilateral basal ganglia, left thalamus, bilateral frontal lobes, no stenosis was seen. Brain MRI today showed acute infarct involving posterior limb left internal capsule, old infarcts involving the bilateral basal ganglia and the left thalamus, age-related changes. Echo today shown normal LV systolic function with an estimated EF of 60-65%, grade 1 diastolic dysfunction. Initial labs showed a white blood cell count of 10.3, hemoglobin A1c of 10.0, liver enzymes are normal. Neurology was consulted and recommended started patient on Lipitor 80 mg daily, aspirin 81 mg daily, Plavix 75 mg daily for 3 weeks, and get a speech eval. On examination today patient speech is slurred. He reports incontinence since the CVA. He denies any fever, chills, vision changes, nausea, vomiting, diarrhea, chest pain, or shortness of breath. Plan is for PT and OT to evaluate him, speech therapy eval, and barium swallow. 11/29/23: Patient seems a bit frustrated with trying to find his words. Speech therapist in room working with patient. He had a barium swallow today in which he failed. Speech will be following
[2023-11-30 16:19] LABS: Glucose Point of Care 167 mg/dl (65-105)
[2023-11-30 22:00] VITALS: BP 154/82; PULSE 58; RESP 16; TEMP 36.3; O2SAT 100
[2023-11-30 22:42] LABS: Glucose Point of Care 189 mg/dl (65-105)
[2023-12-01 06:00] VITALS: BP 132/67; PULSE 84; RESP 16; TEMP 36.4; O2SAT 100
[2023-12-01 06:25] LABS: Glucose Point of Care 219 mg/dl (65-105)
[2023-12-01] MEDS: INSULIN ASPART (*BKC) 100 UNITS/ML SUB-Q ×2 (06:27→12:42)
[2023-12-01 06:32] LABS: Basophils Percent Auto 0.3 % (0.2-1.2); Eosinophils Absolute Auto 0.1 K/mm3 (0-0.3); Eosinophils Percent Auto 1.4 % (0-4.4); Hematocrit 42.7 % (42.0-52.0); Hemoglobin 14.6 g/dL (14.0-18.0); Immature Granulocyte Absolute 0.03 K/mm3 (0.00-0.031); Immature Granulocyte Percent A 0.3 % (0-0.5); Lymphocytes Absolute Auto 2.87 K/mm3 (0.9-3.2); Lymphocytes Percent Auto 32.7 % (18.3-44.2); Mean Corpuscular HGB Conc 34.2 g/dl (32-36); Mean Corpuscular Hemoglobin 33.7 pg (26-34); Mean Corpuscular Volume 98.6 fl (80-100); Mean Platelet Volume 11.3 fl (7.4-10.4); Monocytes Absolute Auto 0.7 K/mm3 (0.1-0.6); Neutrophils Percent Auto 57.3 % (45.5-73.1); Platelet Count Result 245 k/mm3 (150-375); Red Blood Count 4.33 M/mm3 (4.6-6.20); Red Cell Distribution Width 11.7 % (11.5-14.5); White Blood Count 8.8 K/mm3 (4.5-10.0)
[2023-12-01 06:41] LABS: Alanine Aminotransferase 14 U/L (6-50); Albumin Level 4.1 g/dL (3.5-5.1); Alkaline Phosphatase 55 U/L (38-126); Anion Gap 5 mmol/L (4-12); Aspartate Amino Transferase 26 U/L (17-59); Blood Urea Nitrogen 5 mg/dL (9-20); Calcium 9.1 mg/dL (8.4-10.2); Carbon Dioxide 25 mmol/L (22-30); Chloride 106 mmol/L (98-107); Estimated CRCL calculation 124 ml/min; Estimated Glomerular Filt Rate > 60; Glucose 213 mg/dL (65-110); Magnesium 1.9 mg/dL (1.6-2.3); Potassium 3.5 mmol/L (3.4-5.0); Sodium 136 mmol/L (137-145)
[2023-12-01 09:26] VITALS: O2SAT 96
[2023-12-01 09:57] VITALS: O2SAT 100
[2023-12-01 11:39] LABS: Glucose Point of Care 214 mg/dl (65-105)
[2023-12-01 14:00] VITALS: BP 135/73; PULSE 78; RESP 22; TEMP 36.5; O2SAT 100
--- NOTE | 2023-12-01 14:26 | PM.DS ---
DS: Admitting Diagnosis Discharge Date 12/01/23 Admitting Diagnosis Slurred speech TIA DS: Discharge Diagnosis Discharge Diagnosis (1) Acute CVA (cerebrovascular accident): Code(s): I63.9 - Cerebral infarction, unspecified Status: Acute (2) Slurred speech: Code(s): R47.81 - Slurred speech Status: Acute (3) Hypertension: Code(s): I10 - Essential (primary) hypertension Status: Acute (4) Diabetes: Code(s): E11.9 - Type 2 diabetes mellitus without complications Status: Acute DS: Summary Hospital Course Reason for hospitalization: Slurred speech TIA Hospital Course: 11/28/23: This is a 58-year-old male who presented to the hospital on 11/27/2023 for evaluation is slowed speech.? Workup in the hospital included a chest x-ray which was negative.? Head CT which showed old infarcts including the bilateral basal ganglia, left thalamus, bilateral frontal lobes.? Head and neck CTA showed the old infarcts in the bilateral basal ganglia, left thalamus, bilateral frontal lobes, no stenosis was seen.? Brain MRI today showed acute infarct involving posterior limb left internal capsule, old infarcts involving the bilateral basal ganglia and the left thalamus, age-related changes.? Echo today shown normal LV systolic function with an estimated EF of 60-65%, grade 1 diastolic dysfunction.? Initial labs showed a white blood cell count of 10.3, hemoglobin A1c of 10.0, liver enzymes are normal.? Neurology was consulted and recommended started patient on Lipitor 80 mg daily, aspirin 81 mg daily, Plavix 75 mg daily for 3 weeks, and get a speech eval. On examination today patient speech is slurred. He reports incontinence since the CVA. He denies any fever, chills, vision changes, nausea, vomiting, diarrhea, chest pain, or shortness of breath. Plan is for PT and OT to evaluate him, speech therapy eval, and barium swallow. 11/29/23: Patient seems a bit frustrated with trying to find his words. Speech therapist in room working with patient. He had a barium swallow today in which he failed. Speech will be following up with him over the next few days. He will remain NPO at this time. PT and OT to evaluate him today. 11/30/23: Patient still seems very frustrated and ready to be discharged. I explained that we need to still address his swallowing and that he can not be discharged at this time because he will require follow up with speech therapy and have another modified barium study. He will continue to work with PT and OT as well. He remains NPO. Labs today shown a Na+ 135, BG ranging 169-185, otherwise unremarkable. 12/01/23: Patient denies any new complaints today. He states that he wants to go home. He had a repeat barium swallow today and passed. He did have mild aspiration with thin liquids with use of a straw. As long as he takes his time, takes sips with a cup and tucks his chin, he should have no issues. I reinterated these findings with him. He is still wanting to be discharged today as he lives in [place]. I talked to him about establishing with a primary care doctor, neurologist, and continue speech therapy. Prescriptions were provided for atorvastatin, aspirin, and plavix to be continued. Labs today only shown BG ranging 189-219 otherwise essentially normal. He is stable for discharge at this time. final diagnosis: CVA, dysphagia, hyperglycemia Status at Discharge Cognitive/behavioral status at discharge: Alert and oriented x3 Functional status at discharge: independent ambulation Overall status at discharge: patient is progressing back to baseline Time Spent with Patient Time attestation: Total time spent providing and/or coordinating discharge services: Time spent: Greater than 30 minutes Exam Narrative: General: In no acute distress, well nourished Head: atraumatic, no encephalopathy Eyes: EOMI, PERRLA, sclera clear ENT: moist mucous membranes, nasal passages clear Neck: supple, no JVD, no adenopathy,
--- NOTE | 2023-12-01 14:55 | PCSTNOTE ---
Please refer to the Modified Barium Swallow Evaluation in the EMR.
== END 2023-12-01 15:35 | disposition home or self-care (01) | DRG 66 ==
LOC: ANHED 11-28 05:50 → ANH3MEDSUR 11-28 06:43
PROVIDERS: Admitting Provider Internal Medicine; Emergency Provider Emergency Medicine; Visit Provider Nurse Practitioner Acute Care
DX: I63.9 Cerebral infarction, unspecified (principal); R47.81 Slurred speech; R47.01 Aphasia; R13.10 Dysphagia, unspecified; R32 Unspecified urinary incontinence; R29.702 NIHSS score 2; I10 Essential (primary) hypertension; E11.9 Type 2 diabetes mellitus without complications
CPT/HCPCS: 36415; 70450; 70496; 70498; 70553; 71045; 80053; 82948; 83036; 83721; 83735; 84443; 84484; 85025; 85610; 85730; 92523; 92526; 92611; 93005; 93306; 96375; 97161; 97165; 99285; A9270; A9577; J1815; Q9967